=== PATIENT | female | born 1980 | race Hispanic/Latino ===

== ENCOUNTER 2019-11-09 08:38 | Emergency (ER) | payer SELFPAY ==
[~2019-11-09] VITALS: Ht 157.5 cm; Wt 58.1 kg
[2019-11-09] MEDS ORDERED: FAMOTIDINE 20 MG TAB PO ONE (09:00)
[2019-11-09] MEDS ORDERED: DIPHENHYDRAMINE HCL 25 MG CAP PO ONE (09:00)
[2019-11-09] MEDS ORDERED: DEXAMETHASONE 10MG/ML PF INJ IV ONE (09:00)
[2019-11-09] MEDS ORDERED: DEXAMETHASONE SOD PHOS 10 MG/1 ML VIAL ONE (09:14)
[2019-11-09] MEDS ORDERED: PREDNISONE20 MG PO (09:16)
== END 2019-11-09 09:36 | disposition home or self-care (01) ==
LOC: FSED 08:38
DX: L50.0 Allergic urticaria (principal)
CPT/HCPCS: 99283; J1100

== ENCOUNTER 2020-09-28 17:33 | Emergency (ER) | payer SELFPAY ==
[~2020-09-28] VITALS: Ht 162.6 cm; Wt 54.4 kg
[~2020-09-28 17:33] MED LIST: PREDNISONE20 MG PO
[2020-09-28] MEDS ORDERED: MACROBID 100 M100 MG PO (19:43)
[2020-09-28] MEDS ORDERED: ONDANSETRON ODT8 MG SL (19:43)
[2020-09-28 19:49] VITALS: BP 108/60
== END 2020-09-28 19:49 | disposition home or self-care (01) ==
LOC: FSED 17:54
DX: O23.41 Unspecified infection of urinary tract in pregnancy, first trimester (principal); O34.81 Maternal care for other abnormalities of pelvic organs, first trimester; N83.202 Unspecified ovarian cyst, left side; N83.201 Unspecified ovarian cyst, right side; R10.2 Pelvic and perineal pain
CPT/HCPCS: 76830; 81003; 81025; 99283